=== PATIENT | male | born 1960 | race African-American/Black ===

== ENCOUNTER 2019-09-16 08:58 | Outpatient (CLI) | payer BC, SELFPAY ==
--- NOTE | ~2019-09-16 | US_ITS ---
EXAMINATION: US abdomen complete DATE: 09/16/2019 09:57 INDICATION: Liver disease. TECHNIQUE: Multiple grayscale and Doppler ultrasound images of the abdomen were obtained. COMPARISON: CT abdomen and pelvis 01/02/2017 FINDINGS: The visualized portions of the head and body of the pancreas are normal. Abdominal aorta is normal in caliber. The kidneys are normal in size. There is a 14 mm cyst in right kidney. The spleen is normal in size. The liver is normal without focal lesion. No liver surface nodularity. There is n ormal flow in main portal vein. The gallbladder is absent. The common duct is normal and measures 7 m m. IMPRESSION: 1. Normal liver. Reviewed, dictated and finalized at location A. IMPRESSION: 1. Normal liver.
== END 2019-09-16 08:59 | disposition home or self-care (01) ==
LOC: ANHIMG 09:05
PROVIDERS: PCP Emergency Medicine; Visit Provider Emergency Medicine
DX: K76.9 Liver disease, unspecified (principal)
CPT/HCPCS: 76700

== ENCOUNTER 2020-05-08 07:28 | Outpatient (CLI) | payer BC, SELFPAY ==
--- NOTE | ~2020-05-08 | MR_ITS ---
EXAMINATION: MR knee RT wo con DATE: 05/08/2020 08:51 INDICATION: Right knee pain. TECHNIQUE: Magnetic resonance imaging (MRI) of the right knee was performed without intravenous contr ast. Sequences included axial PD-weighted FS FSE, coronal PD-weighted FSE and PD-weighted FS FSE, sag ittal PD-weighted FSE, and sagittal T2-weighted FS FSE. COMPARISON: None. FINDINGS: Medial compartment: Medial meniscus is normal. There is cartilage surface irregularity of tibial condyle. There is focal full-thickness cartilage loss of femoral condyle involving the lateral articular surface with mild pierce bchondral edema-like marrow signal intensity. There are tiny marginal osteophytes. Lateral compartment: Lateral meniscus is normal. There is cartilage surface irregularity of tibial condyle. Femoral cartil age is normal. Patellofemoral compartment: There is cartilage surface irregularity of patella. Trochlear cartilage is normal. Ligaments and tendons: The anterior and posterior cruciate ligaments are normal. There are changes of prior sprains of media l collateral ligament and fibular collateral ligament characterized by increased signal intensity pro ximally. There is a near complete tear of quadriceps tendon. There is mild patellar tendinopathy. The re is edema in the semimembranosus, vastus medialis, vastus intermedius, and vastus lateralis muscles , consistent with mild strains. Fluid: There is a large knee joint effusion. There is a small ruptured Balbuena's cyst. There is subcutaneous e kathleen about the knee. Other: There is a focus of subcutaneous susceptibility artifact anteromedially at the level of the joint micho[place] e. IMPRESSION: 1. Near complete tear of quadriceps tendon. 2. Focal severe chondrosis of medial femoral condyle. Mild chondrosis of medial tibial condyle. Mild chondrosis of lateral and patellofemoral compartments. 3. Large knee joint effusion. 4. Small ruptured Balbuena's cyst. 5. Multiple mild muscle strains (grade 1). 6. Focus of subcutaneous susceptibility artifact anteromedially at the level of the knee joint line, likely a small foreign body. Reviewed, dictated and finalized at location A. [employer]IST
== END 2020-05-08 07:29 | disposition home or self-care (01) ==
LOC: ANHIMG 07:33
PROVIDERS: PCP Emergency Medicine; Visit Provider Orthopaedic Surgery
DX: M25.461 Effusion, right knee (principal); S76.111A Strain of right quadriceps muscle, fascia and tendon, initial encounter; M79.89 Other specified soft tissue disorders
CPT/HCPCS: 73721

== ENCOUNTER 2020-06-15 17:00 | Emergency (ER) | payer BC, SELFPAY ==
--- NOTE | ~2020-06-15 | CT_ITS ---
EXAMINATION: CT abdomen pelvis w con DATE: 06/15/2020 18:17 INDICATION: Lower abdominal pain TECHNIQUE: Computed tomography (CT) of the abdomen and pelvis was performed with 100 cc Omnipaque 350 intravenous contrast. Automated exposure control and iterative reconstruction technique were employe d. Exam dose: 1595.64 mGy-cm total exam DLP. COMPARISON: 01/02/2017 CT abdomen pelvis. FINDINGS: Emphysematous lung changes and pneumatoceles, especially of the right lower lobe. Normal heart size. No pericardial or pleural effusion. The liver, spleen, pancreas, and adrenal glands are unremarkable. There is a new approximately 9 mm exophytic soft tissue density at the anterolateral aspect of the up per pole of the right kidney which is not evident on 01/02/2017. Consider MR evaluation of the kidneys or six-month follow-up CT imaging. No urinary tract calculus or hydroureteronephrosis. The urinary bladder is unremarkable. There is mod erate prostate enlargement and minimal calcification. Normal caliber of the abdominal aorta. No intraperitoneal or retroperitoneal or pelvic mass lesion or adenopathy or ascites is detected. Small sliding hiatal hernia. Normal appendix. No bowel obstruction, bowel wall thickening, pneumatosis or intraperitoneal free air . Small fat-containing umbilical hernia. Diffuse osteopenia. Diffuse idiopathic skeletal hyperostosis of the thoracic spine. No suspicious osteolytic or osteoblastic lesions are noted. IMPRESSION: Emphysema New approximately 9 mm exophytic soft tissue projection at the anterolateral aspect of the upper pole of the right kidney, new since 01/02/2017. Consider MR evaluation of the kidney or six-month follow-u p CT imaging Small sliding hiatal hernia Normal appendix Reviewed, dictated and finalized at [facility]. Reviewed, dictated and finalized at location A. IMPRESSION: Emphysema New approximately 9 mm exophytic soft tissue projection at the anterolateral as pect of the upper pole of the right kidney, new since 01/02/2017. Consider MR ev aluation of the kidney or six-month follow-up CT imaging Small sliding hiatal hernia Normal appendix
[2020-06-15 17:04] VITALS: BP 160/83; PULSE 58; RESP 22; TEMP 36.5; O2SAT 100
[2020-06-15 17:19] LABS: Basophils Percent Auto 0.1 % (0.2-1.2); Eosinophils Percent Auto 0.2 % (0-4.4); Hematocrit 39.2 % (42.0-52.0); Hemoglobin 13.6 g/dL (14.0-18.0); Immature Granulocyte Absolute 0.03 K/mm3 (0.00-0.031); Immature Granulocyte Percent A 0.3 % (0-0.5); Lymphocytes Absolute Auto 2.32 K/mm3 (0.9-3.2); Lymphocytes Percent Auto 25.2 % (18.3-44.2); Mean Corpuscular HGB Conc 34.7 g/dl (32-36); Mean Corpuscular Hemoglobin 30.4 pg (26-34); Mean Corpuscular Volume 87.5 fl (80-100); Mean Platelet Volume 10.7 fl (7.4-10.4); Monocytes Absolute Auto 0.5 K/mm3 (0.1-0.6); Monocytes Percent Auto 5.4 % (2.6-8.5); Neutrophils Absolute Auto 6.3 K/mm3 (1.3-6.7); Neutrophils Percent Auto 68.8 % (45.5-73.1); Platelet Count Result 254 k/mm3 (150-375); Red Blood Count 4.48 M/mm3 (4.6-6.20); Red Cell Distribution Width 13.6 % (11.5-14.5); White Blood Count 9.2 K/mm3 (4.5-10.0)
--- NOTE | 2020-06-15 17:40 | PC.NURSE ---
Pt states he is unable to provide urine sample at this time
[2020-06-15 17:59] LABS: Alanine Aminotransferase 29 U/L (4-50); Albumin Level 4.5 g/dL (3.5-5.1); Alkaline Phosphatase 65 U/L (38-126); Anion Gap 12 mmol/L (8-16); Aspartate Amino Transferase 31 U/L (17-59); Bilirubin,Total 0.8 mg/dL (0.2-1.3); Blood Urea Nitrogen 18 mg/dL (9-20); Calcium 9.7 mg/dL (8.4-10.2); Carbon Dioxide 24 mmol/L (22-30); Chloride 103 mmol/L (98-107); Estimated CRCL calculation 124 ml/min; Estimated Glomerular Filt Rate > 60; Glucose 134 mg/dL (75-110); Lipase 28 U/L (23-300); Sodium 139 mmol/L (137-145)
--- NOTE | 2020-06-15 18:28 | ED.GENADULT ---
HPI - General Adult General Chief complaint: Abdominal Pain Stated complaint: Abd pain, N/V Time Seen by Provider: 06/15/20 17:12 History of Present Illness HPI narrative: Patient is a 5-year-old male who presents to the ER with abdominal pain. Its midline and nonradiating. Aching in nature. Cannot describe any aggravating or alleviating factors. In fact patient is mainly laying on the side and not particularly engaging in the taking of the history or physical exam. Patient reports some mild nausea but no vomiting. Denies constipation or diarrhea. Denies urinary symptoms. Patient does report Dr. Velasquez operated on his right knee 6 weeks ago. No chest pain or shortness of breath. Related Data Home Medications Medication Instructions Recorded Confirmed alprazolam 06/15/20 amlodipine 06/15/20 hydrocodone-acetaminophen tablet 06/15/20 irbesartan-hydrochlorothiazide tablet 06/15/20 metoprolol succinate PO 06/15/20 rivaroxaban [Xarelto] mg 06/15/20 06/15/20 spironolactone 06/15/20 tadalafil mg 06/15/20 Allergies Allergy/AdvReac Type Severity Reaction Status Date / Time No Known Allergies Allergy Unverified 06/15/20 17:36 Review of Systems Review of Systems: All systems reviewed & are unremarkable except as noted in HPI and below ROS unobtainable: Yes other (Difficult to obtain due to poor participation by patient) Constitutional: Constitutional: Denies chills, Denies fever(s) and Denies weakness Cardiovascular: Cardiovascular: Denies chest pain and Denies radiating jaw, neck or arm pain Respiratory: Respiratory: Denies cough, Denies dyspnea and Denies wheezing Gastrointestinal: Gastrointestinal: Reports abdominal pain, Denies constipation, Denies diarrhea, Reports nausea and Reports vomiting Genitourinary: Genitourinary: Denies hematuria, Denies dysuria and Denies urinary frequency PMFSH Past Medical History Medical History (Updated 06/15/20 @ 18:42 by Joseph Awad MD) Anxiety Hypertension Surgical History Surgical History (Updated 06/15/20 @ 18:33 by Joseph Awad MD) H/O right knee surgery History of cholecystectomy Social History Social History (Updated 06/15/20 @ 18:33 by Joseph Awad MD) Smoking status: Never smoker Exam Narrative: Exam Narrative: GENERAL: Uncomfortable-appearing, well-nourished, and in no acute distress. HEAD: Normocephalic, atraumatic. ENT: Mucous membranes moist. CHEST: Clear to auscultation. No respiratory distress. HEART: Regular rate and rhythm. Normal peripheral pulses. ABDOMEN: Soft, mild suprapubic tenderness without guarding, nondistended, normal active bowel sounds. EXTREMITIES: Normal range of motion. No edema. Reviewed by lower extremity in knee brace. SKIN: Warm, dry, no rash. NEURO: Alert and oriented x3. PSYCH: Normal mood and affect. Course Course Emergency Course: Patient resting comfortably in the room. Normal imaging and labs. Discharge home. Will send home with antiemetics. Vital Signs Vital signs: Vital Signs Temperature 97.7 F 06/15/20 17:04 Pulse Rate 58 L 06/15/20 17:04 Respiratory Rate 22 H 06/15/20 17:04 Blood Pressure 160/83 H 06/15/20 17:04 Pulse Oximetry 100 06/15/20 17:04 Temperature 97.7 F 06/15/20 17:04 Pulse Rate 58 L 06/15/20 17:04 Respiratory Rate 22 H 06/15/20 17:04 Blood Pressure 160/83 H 06/15/20 17:04 Pulse Oximetry 100 06/15/20 17:04 Medical Decision Making Vital Signs Vital Signs: Vital Signs Temperature 97.7 F 06/15/20 17:04 Pulse Rate 58 L 06/15/20 17:04 Respiratory Rate 22 H 06/15/20 17:04 Blood Pressure 160/83 H 06/15/20 17:04 Pulse Oximetry 100 06/15/20 17:04 Temperature 97.7 F 06/15/20 17:04 Pulse Rate 58 L 06/15/20 17:04 Respiratory Rate 22 H 06/15/20 17:04 Blood Pressure 160/83 H 06/15/20 17:04 Pulse Oximetry 100 06/15/20 17:04 Lab Data Result diagrams: 06/15/20 17:09 06/15/20 17:09
[2020-06-15 18:45] LABS: Add Urine Microscopic? YES; Appearance Urine Clear (Clear); Bilirubin Urine Negative (Negative); Blood Urine Negative (Negative); Color Urine Yellow (Yellow); Glucose Urine UA Negative (Negative); Ketones Urine 1+ mg/dL (Negative); Leukocyte Esterase Ur Negative LEU/UL (Negative); Mucus Urine Rare /lpf; Nitrate Urine Negative (Negative); Protein Urine Negative (Negative); RBC Urine 0-2 /hpf (0-2); Specific Grav Ur 1.027 (1.001-1.035); Urobilinogen Urine Negative mg/dL (<2.0); WBC Urine 0-3 /hpf
[2020-06-15 19:01] VITALS: BP 162/86; PULSE 71; RESP 18; O2SAT 100
== END 2020-06-15 19:03 | disposition home or self-care (01) ==
PROVIDERS: Emergency Medicine; Emergency Provider Emergency Medicine; PCP Emergency Medicine
DX: R10.9 Unspecified abdominal pain (principal); R11.0 Nausea; N28.9 Disorder of kidney and ureter, unspecified; F41.9 Anxiety disorder, unspecified; I10 Essential (primary) hypertension; Z79.01 Long term (current) use of anticoagulants; K44.9 Diaphragmatic hernia without obstruction or gangrene; J43.9 Emphysema, unspecified
CPT/HCPCS: 36415; 74177; 80053; 81001; 83690; 85025; 99284; Q9967

== ENCOUNTER 2020-08-24 15:43 | Outpatient (CLI) | payer BC, SELFPAY ==
--- NOTE | ~2020-08-24 | MR_ITS ---
EXAMINATION: MR abdomen wo/w con DATE: 08/24/2020 17:27 INDICATION: Right kidney mass. TECHNIQUE: Magnetic resonance imaging (MRI) of the abdomen was performed without and with 20 mL Multi Shawn intravenous contrast. Sequences included coronal T2-weighted FS FSE, coronal and axial FIESTA F S, coronal LAVA-flex, axial LAVA, axial T2-weighted FSE, axial T1-weighted dual-echo FSPGR, axial STI R FSE, and axial DWI. Postcontrast sequences included coronal LAVA-flex and a time course of axial LA VA. COMPARISON: CT abdomen and pelvis 06/15/2020, 01/02/2017 FINDINGS: The liver, spleen, pancreas, and adrenal glands are normal. There are cysts in the kidneys measuring up to 14 mm on the right. There is a 13 mm enhancing mass at the anterolateral aspect of right kidney upper pole. There are no dilated loops of bowel. There are no pathologically enlarged lymph nodes. T here is no free intraperitoneal fluid. IMPRESSION: 1. 13 mm enhancing right kidney mass, consistent with renal cell carcinoma. Reviewed, dictated and finalized at location A.
[2020-08-24 16:52] LABS: Estimated Glomerular Filt Rate > 60
== END 2020-08-24 15:44 | disposition home or self-care (01) ==
LOC: ANHIMG 15:44
PROVIDERS: PCP Emergency Medicine; Visit Provider Emergency Medicine
DX: N28.89 Other specified disorders of kidney and ureter (principal)
CPT/HCPCS: 74183; A9577

== ENCOUNTER 2021-05-17 12:49 | Outpatient (CLI) | payer BC, SELFPAY ==
--- NOTE | ~2021-05-17 | CT_ITS ---
EXAMINATION: CT abdomen wo/w con INDICATION: Malignant neoplasm of the kidney TECHNIQUE: Computed tomographic images of the abdomen were obtained prior to then following the admin istration of 100 cc of Omnipaque 350 intravenous contrast. The dose-length product (DLP) was 1890.88 mGy-cm. Automated exposure control and iterative reconstruction technique were employed. COMPARISON: 06/15/2020 FINDINGS: Emphysema is noted in the lung bases. The heart size is normal. The gallbladder is surgical ly absent. The liver, spleen, pancreas, and adrenal glands are normal. There are surgical changes of left partial nephrectomy. No residual or recurrent mass is identified. There is a 1.3 cm cyst of the right kidney. There is a 10 mm cyst of the left kidney. There are no pathologically enlarged abdomina l lymph nodes. There is no free intraperitoneal gas or evidence of bowel obstruction. The appendix is normal. Moderate lumbar spondylosis is noted. IMPRESSION: 1. Changes of right partial nephrectomy without residual or recurrent neoplasm. Reviewed, dictated and finalized at location A. [employer]
[2021-05-17 13:21] LABS: Estimated Glomerular Filt Rate > 60
== END 2021-05-17 12:50 | disposition home or self-care (01) ==
LOC: ANHIMG 12:53
PROVIDERS: PCP Emergency Medicine; Visit Provider Urology
DX: C64.9 Malignant neoplasm of unspecified kidney, except renal pelvis (principal); M47.816 Spondylosis without myelopathy or radiculopathy, lumbar region
CPT/HCPCS: 74170; Q9967

== ENCOUNTER 2023-02-03 00:46 | Day surgery (SDC) | payer OTHER, SELFPAY ==
[2023-01-21 14:55] VITALS: BMI 33.7
--- NOTE | 2023-01-31 10:48 | SUR.PREOP ---
Patient called regarding upcoming procedure. Message left on pt's voicemail regarding arrival time and clear liquid prep on Friday. Call back number left.
[2023-02-03 10:00] VITALS: BMI 32.8
[2023-02-03 10:04] VITALS: BP 120/93; PULSE 52; RESP 20; TEMP 35.7; O2SAT 100
[2023-02-03] MEDS: LACTATED RINGERS 1,000 ML 150 ML IV CONT (10:19)
--- NOTE | 2023-02-03 10:19 | WPDANESEPPF ---
Anes - Initial Pre Proc Eval Procedure: Operation Date: 02/03/23 14:15 Proposed Procedures p Colonoscopy - Robert Mix MD Date/Time: 02/03/23 10:19 Surgeon: Robert Mix MD Pre Op Diagnosis: Abnormal Weight Loss Patient Data Age: 62 Gender: M Height: 1.85 m Weight: 112.7 kg Last Vital Signs Temp 96.2 F L 02/03/23 10:04 Pulse 52 L 02/03/23 10:04 Resp 20 02/03/23 10:04 BP 120/93 H 02/03/23 10:04 Pulse Ox 100 02/03/23 10:04 O2 Del Method Room Air 02/03/23 10:04 Allergies Allergy/AdvReac Type Severity Reaction Status Date / Time No Known Allergies Allergy Verified 02/03/23 09:58 Home Medications Medication Instructions Recorded Confirmed Type alprazolam 1 mg tablet 1 mg PO DAILY PRN Anxiety 06/15/20 02/03/23 History amlodipine 10 mg tablet 10 mg PO DAILY 06/15/20 02/03/23 History hydrocodone 10 mg-acetaminophen 1 tablet PO DAILY 06/15/20 02/03/23 History 325 mg tablet irbesartan 300 1 tablet PO DAILY 06/15/20 02/03/23 History mg-hydrochlorothiazide 12.5 mg tablet metoprolol succinate 100 mg 100 mg PO DAILY 06/15/20 02/03/23 History tablet,extended release 24 hr tadalafil 20 mg tablet 20 mg PO DAILY PRN Sexual Activity 06/15/20 02/03/23 History Patient hx anesthesia problems: none Family hx anesthesia problems: none Results Review: All pre-operative results and documents have been reviewed as part of the pre-operative evaluation. [facility] Past Medical History Medical History (Updated 06/16/20 @ 00:00 by Malick Neal) Anxiety Hypertension Surgical History Surgical History (Updated 06/15/20 @ 18:33 by Joseph Awad MD) H/O right knee surgery History of cholecystectomy Social History Social History (Updated 06/15/20 @ 18:33 by Joseph Awad MD) Smoking status: Never smoker Substance use: current Substance use type: marijuana and opiates Other substance usage details: marijuana on occasion, opiates daily Living arrangements: alone Spiritual care concerns: No Anes - Eval Final PreProcedure Day of Procedure 02/03/23 10:19 Patient weight: obese Heart: regular rate and rhythm Lungs: clear to auscultation Airway: Mallampati scale class III Neurological: alert and oriented Last oral intake: >/= 8 hours ASA classification: III Emergent: no Anesthetic plan: proceed Anesthesia type and monitoring: general GIVS and standard monitoring Results Review: All pre-operative results and documents have been reviewed as part of the pre-operative evaluation. Informed Consent: The patient's anesthetic plan and its attendant risks and benefits were discussed with the patient/family/POA. Questions were solicited and answers provided to the satisfaction of the patient/family/POA.
--- NOTE | 2023-02-03 10:23 | PM.HPGS ---
History of Present Illness History of Present Illness Consent: Risks, benefits, and alternatives have been discussed and questions answered. Patient agrees to proceed with procedure. Chief complaint: Abnormal Weight Loss Narrative: Brice Vazquez is a 62 year old male her for screening colonoscopy, last one about 10 years ago Review of Systems Constitutional: Constitutional: Denies headache(s) and Denies weakness Eyes: Eyes: Denies blurry vision ENT: Reports Normal hearing present, Denies headache(s) and Denies neck pain Cardiovascular: Cardiovascular: Denies chest pain and Denies dyspnea Respiratory: Respiratory: Denies dyspnea Gastrointestinal: Gastrointestinal: Reports no additional gastrointestinal complaints Genitourinary: Genitourinary: Denies dysuria Musculoskeletal: Musculoskeletal: Denies neck pain Integumentary/Breasts: Skin/Breast: Denies dry skin Neurologic: Reports Normal hearing present, Denies headache(s) and Denies weakness Psychiatric: Psychiatric: Denies anxiety Endocrine: Endocrine: Denies change in body appearance Hematologic/Lymphatic: Hematologic/Lymphatic: Denies easy bleeding Allergic/Immunologic: Allergic/Immunologic: Denies urticaria PMFSH Past Medical History Medical History (Updated 02/03/23 @ 10:24 by Robert Mix MD) Anxiety Colon cancer screening Hypertension Surgical History Surgical History (Updated 06/15/20 @ 18:33 by Joseph Awad MD) H/O right knee surgery History of cholecystectomy Social History Social History (Updated 06/15/20 @ 18:33 by Joseph Awad MD) Smoking status: Never smoker Substance use: current Substance use type: marijuana and opiates Other substance usage details: marijuana on occasion, opiates daily Living arrangements: alone Spiritual care concerns: No Meds Home Medications and Allergies Home Medications Medication Instructions Recorded Confirmed Type alprazolam 1 mg tablet 1 mg PO DAILY PRN Anxiety 06/15/20 02/03/23 History amlodipine 10 mg tablet 10 mg PO DAILY 06/15/20 02/03/23 History hydrocodone 10 mg-acetaminophen 1 tablet PO DAILY 06/15/20 02/03/23 History 325 mg tablet irbesartan 300 1 tablet PO DAILY 06/15/20 02/03/23 History mg-hydrochlorothiazide 12.5 mg tablet metoprolol succinate 100 mg 100 mg PO DAILY 06/15/20 02/03/23 History tablet,extended release 24 hr tadalafil 20 mg tablet 20 mg PO DAILY PRN Sexual Activity 06/15/20 02/03/23 History Allergies Allergy/AdvReac Type Severity Reaction Status Date / Time No Known Allergies Allergy Verified 02/03/23 09:58 Vital Signs Vital Signs - 24 hr 02/03/23 10:04 Temperature 96.2 F L Pulse Rate 52 L Respiratory Rate 20 Blood Pressure 120/93 H Pulse Oximetry 100 Oxygen Delivery Room Air Exam Const: General: comfortable and no acute distress HENMT: Face/Nose/Sinus: Normal nares present Eyes: General: appearance normal, both eyes and all related structures Neck: Neck: no JVD Resp: Auscultation: clear to auscultation bilaterally Cardio: Rate: regular rate Rhythm: regular rhythm GI: Inspection: non-distended GI Palp: Yes Soft to palpation Skin: General skin exam: normal color Neuro: General: gait normal Speech: normal speech Extrem: General: normal to inspection Psych: Mental Status: mental status grossly normal Assessment and Plan Assessment and plan (1) Colon cancer screening: Code(s): Z12.11 - Encounter for screening for malignant neoplasm of colon Status: Acute Assessment and Plan: colonoscopy
[2023-02-03 10:41] VITALS: BP 128/76; PULSE 48; RESP 14; O2SAT 100
[2023-02-03 10:51] VITALS: BP 150/78; PULSE 44; RESP 14; O2SAT 100
[2023-02-03 11:01] VITALS: BP 130/72; PULSE 48; RESP 16; O2SAT 100
== END 2023-02-03 11:11 | disposition home or self-care (01) ==
PROVIDERS: PCP Emergency Medicine; Visit Provider Internal Medicine Gastroenterology
PROC: 0DJD8ZZ Inspection of Lower Intestinal Tract, Via Natural or Artificial Opening Endoscopic (ICD-10-PCS; CPT 45378; principal; 2023-02-03 14:15)
DX: Z12.11 Encounter for screening for malignant neoplasm of colon (principal); D12.3 Benign neoplasm of transverse colon; D12.5 Benign neoplasm of sigmoid colon; K64.8 Other hemorrhoids; R63.4 Abnormal weight loss; F41.9 Anxiety disorder, unspecified; I10 Essential (primary) hypertension; Z79.891 Long term (current) use of opiate analgesic; E66.9 Obesity, unspecified; Z68.32 Body mass index [BMI] 32.0-32.9, adult; F12.90 Cannabis use, unspecified, uncomplicated
CPT/HCPCS: 45385; 88305; J2704; J7120

== ENCOUNTER 2024-09-24 00:33 | Emergency (ER) | payer MEDICARE, MEDICAID, SELFPAY ==
[2024-09-24] VITALS (16 sets, daily range): BP systolic 181–221; BP diastolic 65–94; PULSE 40–52; RESP 10–19; TEMP 36.5; O2SAT 98–100
--- NOTE | 2024-09-24 01:55 | ED_ITS ---
HPI - General Adult General Chief complaint: Abdominal Pain Stated complaint: Abd pain, vomiting/nausea constipation Time Seen by Provider: 09/24/24 01:37 History of Present Illness HPI narrative: 64-year-old male present to the emergency department for evaluation for nausea vomiting and suspected heat exhaustion. Patient states he does not have air conditioning in his apartment but did go to stay at his cousin's house who does have air conditioning. Patient states he does feel improved at this time. Patient denies any associated abdominal pain would was having chills, excessive sweating decreased appetite associated nausea. At time of evaluation patient states he does feel improved other than some residual dizziness. Related Data Home Medications ?Medication ?Instructions ?Recorded ?Confirmed ?Last Taken ?Type alprazolam 1 mg tablet 1 mg PO DAILY PRN Anxiety 06/15/20 04/10/23 02/02/23 History amlodipine 10 mg tablet 10 mg PO DAILY 06/15/20 04/10/23 02/02/23 History hydrocodone 10 mg-acetaminophen 1 tablet PO DAILY 06/15/20 04/10/23 02/02/23 History 325 mg tablet irbesartan 300 1 tablet PO DAILY 06/15/20 04/10/23 02/02/23 History mg-hydrochlorothiazide 12.5 mg tablet metoprolol succinate 100 mg 100 mg PO DAILY 06/15/20 04/10/23 02/03/23 History tablet,extended release 24 hr tadalafil 20 mg tablet 20 mg PO DAILY PRN Sexual Activity 06/15/20 04/10/23 Unknown History Allergies Allergy/AdvReac Type Severity Reaction Status Date / Time No Known Allergies Allergy Verified 09/24/24 00:44 Review of Systems 2 Review of Systems: All systems reviewed & are unremarkable except as noted in HPI and below PMFSH Past Medical History Medical History (Updated 09/24/24 @ 05:05 by Maikol Fermin MD) BRBPR (bright red blood per rectum) Colon cancer screening Anxiety Hypertension Surgical History Surgical History (Updated 06/15/20 @ 18:33 by Joseph Awad MD) H/O right knee surgery History of cholecystectomy Social History Social History (Updated 06/15/20 @ 18:33 by Joseph Awad MD) Smoking status: Never smoker Substance use: current Substance use type: marijuana and opiates Other substance usage details: marijuana on occasion, opiates daily Living arrangements: alone Spiritual care concerns: No Exam 2 Narrative: APPEARANCE: Well appearing, no pain, no distress, well-nourished. HEAD: normocephalic, atraumatic. EYES: PERRLA/EOMI, conjunctivae clear. NOSE: Normal no drainage EARS:TMS clear with good light reflex. THROAT: Pharynx clear, no exudate. NECK: Supple. No adenopathy, no masses. RESPIRATORY: Airway patent, respirations nonlabored. Clear to auscultation bilaterally, no rales, rhonchi, wheezing. CARDIOVASCULAR: Regular rate and rhythm without murmurs rubs or gallops. ABDOMINAL: Soft, nontender, nondistended, normal bowel sounds MUSCULOSKELETAL: Moves all extremities. Strength/ROM intact, No edema, No calf tenderness. NEURO: Alert. Cranial nerves II through XII intact. SKIN: Warm, dry. Normal Color Course Vital Signs Vital signs: Vital Signs Temperature 97.7 F 09/24/24 00:35 Pulse Rate 50 L 09/24/24 00:35 Respiratory Rate 18 09/24/24 00:35 Blood Pressure 199/94 H 09/24/24 00:35 Pulse Oximetry 100 09/24/24 00:35 Oxygen Delivery Room Air 09/24/24 00:35 Temperature 97.7 F 09/24/24 00:35 Pulse Rate 50 L 09/24/24 05:25 Respiratory Rate 17 09/24/24 05:25 Blood Pressure 186/83 H 09/24/24 05:25 Pulse Oximetry 98 09/24/24 05:25 Oxygen Delivery Room Air 09/24/24 00:35 Medical Decision Making [facility] Narrative Medical decision making narrative: 64-year-old gentleman presented emergency department for evaluation for having intermittent chills after some heat exhaustion early the day. Patient is currently afebrile with no leukocytosis and hemoglobin of 14.5. Patient has normal kidney function normal lactic acid with no acute abnormalities on his CMP. Patient was treated with 2 units of lactated Ringer's and was asymptomatic when ambulating with normal orthostatics. Patient was encouraged to continue his rehydration and to avoid the heat. All questions concerns were addressed patient was well-appearing at time of discharge. Differential Diagnosis Differential Diagnosis: Dehydration, electrolyte abnormality, heat exhaustion, rhabdomyolysis Vital Signs Vital Signs: Vital Signs Temperature 97.7 F 09/24/24 00:35 Pulse Rate 50 L 09/24/24 00:35 Respiratory Rate 18 09/24/24 00:35 Blood Pressure 199/94 H 09/24/24 00:35 Pulse Oximetry 100 09/24/24 00:35 Oxygen Delivery Room Air 09/24/24 00:35 Temperature 97.7 F 09/24/24 00:35 Pulse Rate 50 L 09/24/24 05:25 Respiratory Rate 17 09/24/24 05:25 Blood Pressure 186/83 H 09/24/24 05:25 Pulse Oximetry 98 09/24/24 05:25 Oxygen Delivery Room Air 09/24/24 00:35 Lab Data Lab results reviewed: Yes I reviewed the patient's lab results. 09/24/24 02:05 09/24/24 02:05 Labs: Lab Results 09/24/24 09/24/24 Range/Units 02:05 03:50 WBC 6.3 (4.5-10.0) K/mm3 RBC 4.74 (4.6-6.20) M/mm3 Hgb 14.5 (14.0-18.0) g/dL Hct 42.9 (42.0-52.0) % MCV 90.5 (80-100) fl MCH 30.6 (26-34) pg MCHC 33.8 (32-36) g/dl RDW 14.6 H (11.5-14.5) % Plt Count 229 (150-375) k/mm3 MPV 10.0 (7.4-10.4) fl Immature Gran % (Auto) 0.2 (0-0.5) % Neut % (Auto) 88.1 H (45.5-73.1) % Lymph % (Auto) 10.0 L (18.3-44.2) % [place] % (Auto) 1.7 L (2.6-8.5) % Eos % (Auto) 0.0 (0-4.4) % Baso % (Auto) 0.0 L (0.2-1.2) % Lymph # (Auto) 0.63 L (0.9-3.2) K/mm3 [place]uming # (Auto) 0.1 (0.1-0.6) K/mm3 Eos # (Auto) 0.0 (0-0.3) K/mm3 Baso # (Auto) 0.0 (0.0-0.1) K/mm3 Abs Immat Gran (auto) 0.01 (0.00-0.031) K/mm3 Absolute Neuts (auto) 5.6 (1.3-6.7) K/mm3 Absolute Nucleated RBC 0.000 (0.0-0.012) K/mm3 Nucleated RBC % 0.0 (0.0-0.2) % Sodium 142 (137-145) mmol/L Potassium 3.5 (3.4-5.0) mmol/L Chloride 106 (98-107) mmol/L Carbon Dioxide 24 (22-30) mmol/L Anion Gap 12 (4-12) mmol/L BUN 10 D (9-20) mg/dL Creatinine 0.85 (0.7-1.3) mg/dL Estim Creat Clear Calc 98 ml/min Estimated GFR > 60 (59 - ) Glucose 125 H (65-110) mg/dL Lactic Acid 1.9 (0.7-2.0) mmol/L Calcium 9.3 (8.4-10.2) mg/dL Total Bilirubin 0.8 (0.2-1.3) mg/dL AST 25 (17-59) U/L ALT 18 (6-50) U/L Alkaline Phosphatase 70 (38-126) U/L Total Protein 8.4 H (6.3-8.2) g/dL Albumin 4.6 (3.5-5.1) g/dL Lipase 17 L (23-300) U/L Urine Color Yellow (Yellow) Urine Appearance Clear (Clear) Urine pH 6.0 (5.0-9.0) Ur Specific [place]y 1.022 (1.001-1.035) Urine Protein Trace (Negative) mg/dL Urine Glucose (UA) Negative (Negative) mg/dL Urine Ketones 3+ H (Negative) mg/dL Ur Blood (Man) Negative (Negative) Urine Nitrate Negative (Negative) Urine Bilirubin Negative (Negative) Urine Urobilinogen 1.0 (<2.0) mg/dL Leukocyte Esterase Rfl Negative (Negative) BO/UL Urine RBC 0-2 (0-2) /hpf Urine WBC 0-5 (0-3) /hpf Ur Squamous Epith Cells None seen (Few) /hpf Urine Bacteria None seen /hpf Urine Casts 0-2 ECG Data EKG #1: EKG Interpretation: bradycardia, sinus rhythm, no ectopy, non-specific ST changes, normal QRS and NL axis Discharge Plan Discharge Clinical Impression: Heat exhaustion Patient Disposition: Home Condition: Stable Instructions: Antibiotic Form, Heat Exhaustion (ED) Additional Instructions: Drink plenty of fluids. Have close follow-up with your primary care physician. Patient Language: Wallisian Prescriptions: No Action hydrocortisone 2.5 % cream with perineal applicator 1 applic RECTAL BID PRN (Reason: hemorrhoids) Qty: 30 0RF alprazolam 1 mg tablet 1 mg PO DAILY PRN (Reason: Anxiety) metoprolol succinate 100 mg tablet extended release 24 hr 100 mg PO DAILY hydrocodone-acetaminophen 10-325 mg tablet 1 tablet PO DAILY amlodipine 10 mg tablet 10 mg PO DAILY irbesartan-hydrochlorothiazide 300-12.5 mg tablet 1 tablet PO DAILY tadalafil 20 mg tablet 20 mg PO DAILY PRN (Reason: Sexual Activity) Follow-up/Referrals: Mark Durant MD [Primary Care Provider] -
[2024-09-24] MEDS: ONDANSETRON INJ 4 MG/2 ML VIAL IV PUSH (02:09)
[2024-09-24] MEDS: LACTATED RINGERS 1,000 ML 999 ML IV CONT ×2 (02:09→04:14)
[2024-09-24 02:14] LABS: Hematocrit 42.9 % (42.0-52.0); Hemoglobin 14.5 g/dL (14.0-18.0); Immature Granulocyte Absolute 0.01 K/mm3 (0.00-0.031); Immature Granulocyte Percent A 0.2 % (0-0.5); Lymphocytes Absolute Auto 0.63 K/mm3 (0.9-3.2); Mean Corpuscular HGB Conc 33.8 g/dl (32-36); Mean Corpuscular Hemoglobin 30.6 pg (26-34); Mean Corpuscular Volume 90.5 fl (80-100); Monocytes Absolute Auto 0.1 K/mm3 (0.1-0.6); Monocytes Percent Auto 1.7 % (2.6-8.5); Neutrophils Absolute Auto 5.6 K/mm3 (1.3-6.7); Neutrophils Percent Auto 88.1 % (45.5-73.1); Platelet Count Result 229 k/mm3 (150-375); Red Blood Count 4.74 M/mm3 (4.6-6.20); Red Cell Distribution Width 14.6 % (11.5-14.5); White Blood Count 6.3 K/mm3 (4.5-10.0)
[2024-09-24 02:26] LABS: Alanine Aminotransferase 18 U/L (6-50); Albumin Level 4.6 g/dL (3.5-5.1); Alkaline Phosphatase 70 U/L (38-126); Anion Gap 12 mmol/L (4-12); Aspartate Amino Transferase 25 U/L (17-59); Bilirubin,Total 0.8 mg/dL (0.2-1.3); Blood Urea Nitrogen 10 mg/dL (9-20); Calcium 9.3 mg/dL (8.4-10.2); Carbon Dioxide 24 mmol/L (22-30); Chloride 106 mmol/L (98-107); Estimated CRCL calculation 98 ml/min; Estimated Glomerular Filt Rate > 60; Glucose 125 mg/dL (65-110); Lipase 17 U/L (23-300); Potassium 3.5 mmol/L (3.4-5.0); Sodium 142 mmol/L (137-145); Total Protein 8.4 g/dL (6.3-8.2)
[2024-09-24 02:27] LABS: Lactic Acid Reflex 1.9 mmol/L (0.7-2.0)
--- NOTE | 2024-09-24 03:51 | ECG_ITS ---
Test Date: 2024-09-24 03:56:43 Measurements Intervals [place] Rate: 48 P: 49 [place]: 183 QRS: 55 QRSD: 108 T: 58 QT: 453 QTc: 407 Interpretive Statements SINUS BRADYCARDIA EARLY PRECORDIAL R/S TRANSITION BASELINE WANDER- III, AVL, AVF, V2, V6 ABNORMAL ECG No previous ECG available for comparison Electronically Signed On 09-24-2024 06:11:12 CDT by Maged Godoy D.O.
[2024-09-24 04:03] LABS: Add Urine Microscopic? YES; Appearance Urine Clear (Clear); Bacteria Urine None Seen /hpf; Bilirubin Urine Negative (Negative); Blood Urine Negative (Negative); Color Urine Yellow (Yellow); Glucose Urine UA Negative (Negative); Ketones Urine 3+ mg/dL (Negative); Leukocyte Esterase Ur Negative LEU/UL (Negative); Nitrate Urine Negative (Negative); Non Pathogenic Casts 0-2; Protein Urine Trace mg/dL (Negative); RBC Urine 0-2 /hpf (0-2); Specific Grav Ur 1.022 (1.001-1.035); Squamous Epithelial Cell Urine None Seen /hpf (Few); WBC Urine 0-5 /hpf (0-3)
== END 2024-09-24 05:32 | disposition home or self-care (01) ==
PROVIDERS: Emergency Provider Emergency Medicine; PCP Emergency Medicine
DX: T67.5XXA Heat exhaustion, unspecified, initial encounter (principal); I10 Essential (primary) hypertension; F41.9 Anxiety disorder, unspecified
CPT/HCPCS: 36415; 80053; 81001; 83605; 83690; 85025; 93005; 96361; 96374; 99284; J2405; J7120